=== PATIENT | female | born 1965 | race Caucasian/White ===

== ENCOUNTER 2016-12-07 12:43 | Emergency (ER) | payer MEDICAID ==
[2016-12-07 12:53] VITALS: RESP 16
--- NOTE | 2016-12-07 13:06 | EDPHY ---
H & P Stated Complaint: High potassium, sent by PCP. Time Seen by Provider: 12/07/16 12:58 HPI/ROS: CHIEF COMPLAINT: High potassium HISTORY OF PRESENT ILLNESS: The patient is a 51 y/o female, with a history of ITP, arriving at the referral of the lab for reported high potassium. She had labs drawn today and her potassium resulted at 5.3, 0.1 [id number] from normal. The lab contacted her and directed her to go directly to the ED. She denies any symptoms. REVIEW OF SYSTEMS: Constitutional: No fever, no chills Eyes: No visual changes ENT: No sore throat Respiratory: No cough, no shortness of breath Cardiac: No chest pain Gastrointestinal: No nausea, no vomiting, no abdominal pain Genitourinary: No hematuria, no dysuria Musculoskeletal: No leg pain or swelling Skin: No rash Neurological: No headache, no numbness, no weakness Psychiatric: No depression - Personal History LMP (Females 10-55): Irregular Current Tetanus Diphtheria and Acellular Pertussis (TDAP): Yes Tetanus Vaccine Date: 09/23 - Medical/Surgical History PMH: PMH includes: Idiopathic thrombocytopenic purpura Hx Asthma: No Hx Chronic Respiratory Disease: No Hx Diabetes: No Hx Cardiac Disease: No Hx Renal Disease: No Hx Cirrhosis: No Hx Alcoholism: No Hx HIV/AIDS: No Hx Splenectomy or Spleen Trauma: No Other PMH: ITP. - Social History Smoking Status: Never smoked Additional Social History: Family member at bedside. PCP: Dr. Syed Hand - Physical Exam Exam: General Appearance: Alert, no distress Eyes: Pupils equal and round, no conjunctival pallor or injection ENT, Mouth: Mucous membranes moist Neck: Normal inspection Respiratory: Lungs are clear to auscultation Cardiovascular: Regular rate and rhythm Gastrointestinal: Abdomen is soft and non- tender Neurological: A&O, nonfocal, normal gait Skin: Warm and dry, no rash Extremities: Nontender, no pedal edema Psychiatric: Mood and affect normal Constitutional: Initial Vital Signs Temperature (C) 36.4 C 12/07/16 12:50 Heart Rate 59 L 12/07/16 12:50 Respiratory Rate 16 12/07/16 12:50 Blood Pressure 117/66 12/07/16 12:50 O2 Sat (%) 97 12/07/16 12:50 O2 Delivery Mode Room Air Allergies/Adverse Reactions: latex Allergy (Verified 09/30/10 04:35) Medical Decision Making ED Course/Re-evaluation: This is a 51 y/o female with a history of ITP presenting for evaluation after she was instructed to come to the ED for an elevated potassium of 5.3. I reviewed these labs to confirm the accuracy of this report. She is completely asymptomatic. IV, labs, and EKG have been completed. The 12 lead EKG was interpreted by myself. Sinus rate 57. See hard copy and/or "tracemaster" electronic copy for interpretation. Her potassium here is normal at 4.5. I've discussed this with the patient and recommended following up with her PCP next week to determine if she needs follow up lab work in the near future. She is comfortable with this plan. - Data Points Laboratory Results: Laboratory Results 12/07/16 13:08 12/07/16 13:08 Sodium 136 mEq/L mEq/L (134-144) Potassium 4.5 mEq/L mEq/L (3.5-5.2) Chloride 103 mEq/L mEq/L (97-110) Carbon Dioxide 22 mEq/l D mEq/l (22-31) Anion Gap 11 mEq/L mEq/L (8-16) BUN 15 mg/dL mg/dL (7-23) Creatinine 0.7 mg/dL mg/dL (0.6-1.0) Estimated GFR > 60 Glucose 85 mg/dL mg/dL (70-100) Calcium 9.0 mg/dL mg/dL (8.5-10.4) Departure - Departure Disposition: Home, Routine, Self-Care Clinical Impression: History of ITP Condition: Good Instructions: Immune Thrombocytopenia (ED) Additional Instructions: Follow up with your primary care provider next week. He may want repeat lab work at that time. Referrals: ELINOR HINES [Primary Care Provider] - As per Instructions Report Scribed for: Noemi Pittman Report Scribed by: Viridiana Ling Date of Report: 12/07/16 Time of Report: 13:08 Physician Review and Approval Statement: 12/07/16 13:08 Portions of this note were transcribed by a medical professionals. I personally performed a history, physical exam, medical decision making, and confirmed accuracy of information the transcribed note.
--- NOTE | 2016-12-07 13:09 | CPEKG ---
Heart Rate: 57 RR Interval: 1053 P-R Interval: 160 QRSD Interval: 74 QT Interval: 412 QTC Interval: 401 P Buchanan: 58 QRS Buchanan: 78 T Wave Buchanan: 75 EKG Severity - BORDERLINE ECG - EKG Impression: SINUS RHYTHM EKG Impression: BORDERLINE T ABNORMALITIES, ANT-LAT LEADS Electronically Signed By: Noemi Pittman 07-Dec-2016 13:49:36
[2016-12-07 13:47] LABS: ANION GAP 11 mEq/L (8-16); CARBON DIOXIDE 22 mEq/l (22-31); CHLORIDE 103 mEq/L (97-110); CREATININE 0.7 mg/dL (0.6-1.0); GLOMERULAR FILTRATION RATE > 60; GLUCOSE 85 mg/dL (70-100); POTASSIUM 4.5 mEq/L (3.5-5.2); SODIUM 136 mEq/L (134-144)
[2016-12-07 14:10] VITALS: BP 98/59; PULSE 61; TEMP 97.9; O2SAT 93
== END 2016-12-07 14:20 | disposition home or self-care (01) ==
DX: Z86.2 Personal history of diseases of the blood and blood-forming organs and certain disorders involving the immune mechanism (principal); Z91.040 Latex allergy status